=== PATIENT | male | born 1980 | race African-American/Black ===

== ENCOUNTER 2022-07-24 01:17 | Emergency (ER) | payer OTHER, SELFPAY | END 2022-07-24 02:47 | disposition home or self-care (01) | LOC: NAV ERS 01:17 | DX: J10.1 Influenza due to other identified influenza virus with other respiratory manifestations (principal); J42 Unspecified chronic bronchitis; S20.219A Contusion of unspecified front wall of thorax, initial encounter; F17.210 Nicotine dependence, cigarettes, uncomplicated; Z20.822 Contact with and (suspected) exposure to COVID-19; X58.XXXA Exposure to other specified factors, initial encounter | CPT/HCPCS: 87804; U0003; U0005 ==